=== PATIENT | female | born 1985 | race Caucasian/White ===

== ENCOUNTER 2018-06-11 16:04 | Emergency (ER) | payer OTHER ==
[~2018-06-11] VITALS: Ht 165.1 cm; Wt 67.4 kg
[~2018-06-11 16:04] MED LIST: IBUP-1222 PO
[2018-06-11 16:18] VITALS: BP 135/73
[2018-06-11] MEDS ORDERED: MORPHINE SULFATE 4 MG/ML, 1ML IVPush PRN (17:30)
[2018-06-11] MEDS ORDERED: SODIUM CHLORIDE 0.9% 1,000ML IVBOLUS ONE (17:30)
[2018-06-11] MEDS ORDERED: MAALOX/HYOSCYAMINE/LIDOCAINE 45 ML BTL PO ONE (17:30)
[2018-06-11] MEDS ORDERED: SODIUM CHLORIDE FLUSH 10ML SYR IVF ONE (17:30)
[2018-06-11] MEDS ORDERED: FAMOTIDINE 20 MG/2 ML IVP ONE (17:30)
[2018-06-11 17:45] LABS: BASOPHILS % (AUTO) 0 % (0-1); EOSINOPHILS # (AUTO) 0.01 x10^3/uL (0-0.4); EOSINOPHILS % (AUTO) 0 % (1-7); LYMPHOCYTES # (AUTO) 0.74 x10^3/uL (1-3.4); LYMPHOCYTES % (AUTO) 6 % (22-44); MD NO; MEAN CORPUSCULAR HEMOGLOBIN 32.5 pg (27.0-34.8); MEAN CORPUSCULAR HGB CONC 34.5 g/dL (32.4-35.8); MEAN CORPUSCULAR VOLUME 94.3 fL (80-100); MEAN PLATELET VOLUME 10.7 fL (7.4-10.4); MONOCYTES # (AUTO) 0.32 x10^3/uL (0.2-0.8); MONOCYTES % (AUTO) 3 % (2-9); NEUTROPHILS % (AUTO) 91 % (42-75); PLATELET COUNT 160 x10^3/uL (130-400); RED BLOOD COUNT 4.49 x10^6/uL (3.82-5.3); RED CELL DISTRIBUTION WIDTH 12.8 % (9.6-15.2)
[2018-06-11] MEDS ORDERED: MAALOX/HYOSCYAMINE/LIDOCAINE 45 ML BTL ONE (17:50)
[2018-06-11] MEDS ORDERED: MORPHINE SULFATE 4 MG/ML, 1ML ONE (17:50)
[2018-06-11] MEDS ORDERED: FAMOTIDINE 20 MG/2 ML ONE (17:51)
[2018-06-11 17:57] LABS: ALANINE AMINOTRANSFERASE 27 U/L (12-78); ALBUMIN 4.6 g/dL (3.4-5.0); ANION GAP 13 mmol/L (5-15); CALCIUM 9.4 mg/dL (8.5-10.1); CHLORIDE 109 mmol/L (98-107); CREATININE 0.95 mg/dL (0.55-1.02)
[2018-06-11 17:59] LABS: ALKALINE PHOSPHATASE 44 U/L (45-117); BILIRUBIN,TOTAL 1.2 mg/dL (0.2-1.0); TOTAL PROTEIN 8.2 g/dL (6.4-8.2)
[2018-06-11 18:38] LABS: MICROSCOPIC NOT IND
[2018-06-11 18:40] LABS: CULTURE INDICATED? NO
== END 2018-06-11 19:11 | disposition home or self-care (01) ==
LOC: ED 16:59
DX: K52.9 Noninfective gastroenteritis and colitis, unspecified (principal)
CPT/HCPCS: 36415; 80053; 81003; 85025; 96361; 96374; 96375; 99284; J7030; S0028